=== PATIENT | male | born 1980 | race Caucasian/White ===

== ENCOUNTER 2017-06-11 19:20 | Emergency (ER) | payer OTHER ==
[~2017-06-11] VITALS: Ht 180.3 cm; Wt 83.9 kg
--- NOTE | 2017-06-11 20:24 | NUR ---
PT IN BED. PT A&OX4. PT IS COMPLAINING OF A BURNING SENSATION IN MOUTH. VS WITHIN NORMAL LIMITS. BREATH SOUNDS REGULAR AND UNLABORED. NO SIGNS OF DISTRESS NOTICED AT THIS TIME.
--- NOTE | 2017-06-11 20:50 | NUR ---
Patient discharged to home in stable conditon. Written and verbal after care instructions given. Patient verbalizes understanding of instructions.
[2017-06-12 02:38] VITALS: BP 132/84
== END 2017-06-11 20:50 | disposition home or self-care (01) ==
LOC: ER 19:20
DX: B86 Scabies (principal); Z59.0 Homelessness
CPT/HCPCS: 99283; A4663

== ENCOUNTER 2017-06-13 21:26 | Emergency (ER) | payer OTHER ==
[~2017-06-13] VITALS: Ht 172.7 cm; Wt 72.6 kg
--- NOTE | 2017-06-13 23:00 | NUR ---
Patient given written and verbal discharge instructions. Patient verbalizes understanding of instructions. Patient is ambulatory with steady gait. Refuses offer of [facility] placement. Patient given list of available shelters in surrounding area.
--- NOTE | 2017-06-13 23:00 | NUR ---
Rohan thomas in ED - 06/13/17 at [id number] by [id number] Patient discharged to home in stable conditon. Written and verbal after care instructions given. Patient verbalizes understanding of instructions.
[2017-06-13 23:41] VITALS: BP 130/68
== END 2017-06-13 23:42 | disposition home or self-care (01) ==
LOC: ER 21:27
DX: Z00.00 Encounter for general adult medical examination without abnormal findings (principal); Z59.0 Homelessness
CPT/HCPCS: A4663

== ENCOUNTER 2017-07-10 01:26 | Emergency (ER) | payer OTHER ==
[~2017-07-10] VITALS: Ht 180.3 cm; Wt 81.6 kg
--- NOTE | 2017-07-10 01:30 | NUR ---
DR LITZY COLLINS MD AT BEDSIDE FOR MSE.
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
[2017-07-10] MEDS ORDERED: KETOROLAC TROMETHAMINE 30 MG INJ IM ONE (01:45)
--- NOTE | 2017-07-10 02:00 | NUR ---
Patient discharged to home in stable conditon. Written and verbal after care instructions given. Patient verbalizes understanding of instructions. Pt ambulated from ER w/ stable gait. Verbalizes he will continue to ice his knee. No distress noted. Pt took all personal belongings.
[2017-07-10 02:11] VITALS: BP 114/74
== END 2017-07-10 02:12 | disposition home or self-care (01) ==
LOC: ER 01:27
DX: L03.211 Cellulitis of face (principal); M25.561 Pain in right knee; Z59.0 Homelessness
CPT/HCPCS: A4663; J1885

== ENCOUNTER 2018-12-22 02:15 | Emergency (ER) | payer OTHER ==
[~2018-12-22] VITALS: Ht 172.7 cm; Wt 90.7 kg
[2018-12-22] MEDS ORDERED: diphenhydrAMINE 25 MG CAP PO ONE ×2 (02:30→02:34)
--- NOTE | 2018-12-22 03:11 | NUR ---
Patient given written and verbal discharge instructions. Patient verbalizes understanding of instructions. Patient is ambulatory with steady gait. Refuses offer of assisted placement. Patient given list of available shelters in surrounding area. Patient provided with meals/clothing. Patient ambulated out of ER with stable gait.
[2018-12-22 03:13] VITALS: BP 138/81
== END 2018-12-22 03:15 | disposition home or self-care (01) ==
LOC: ER 02:17
DX: L29.9 Pruritus, unspecified (principal); E78.00 Pure hypercholesterolemia, unspecified; Z59.0 Homelessness
CPT/HCPCS: 99283; Q0163; A4663

== ENCOUNTER 2020-05-15 01:22 | Emergency (ER) | payer OTHER ==
[~2020-05-15] VITALS: Ht 180.3 cm; Wt 81.6 kg
--- NOTE | 2020-05-15 01:45 | NUR ---
Dr. Shonda Hooper at bedside for MSE.
[2020-05-15] MEDS ORDERED: IBUPROFEN 600 MG TABLET ONE (01:59)
[2020-05-15] MEDS ORDERED: IBUPROFEN 600 MG TABLET PO ONE (02:00)
--- NOTE | 2020-05-15 02:05 | NUR ---
Patient given written and verbal discharge instructions. Patient verbalizes understanding of instructions. Patient is ambulatory with steady gait. Refuses offer of [facility] placement. Patient given list of available shelters in surrounding area. Patient provided food per patient request and 2 long sleeve shirts, VSS, no acute signs of distress, all belongings taken.
[2020-05-15 02:07] VITALS: BP 152/87
== END 2020-05-15 02:08 | disposition home or self-care (01) ==
LOC: ER 01:26
DX: S41.111D Laceration without foreign body of right upper arm, subsequent encounter (principal); W45.8XXD Other foreign body or object entering through skin, subsequent encounter; Z59.0 Homelessness; R03.0 Elevated blood-pressure reading, without diagnosis of hypertension; E78.00 Pure hypercholesterolemia, unspecified
CPT/HCPCS: A4663

== ENCOUNTER 2021-02-18 18:32 | Emergency (ER) | payer OTHER ==
[~2021-02-18] VITALS: Ht 170.2 cm; Wt 68.0 kg
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
--- NOTE | 2021-02-18 19:10 | NUR ---
[employer] UNIT 10X12 ( SERIAL # [id number] AND [id number]) AT BEDSIDE.
--- NOTE | 2021-02-18 19:20 | NUR ---
Patient discharged to [facility] in stable condition. Written and verbal after care instructions given to patient and [employer], verbalizes understanding of instructions. Stressed follow up or return to ER for worsening s/s. Denies any pain/discomfort.
[2021-02-18 19:49] VITALS: BP 126/82
== END 2021-02-18 19:25 ==
LOC: ER 18:34
DX: Z02.89 Encounter for other administrative examinations (principal); Z59.02 Unsheltered homelessness; E78.00 Pure hypercholesterolemia, unspecified; Z86.19 Personal history of other infectious and parasitic diseases
CPT/HCPCS: 93005; A4663

== ENCOUNTER 2022-08-31 00:53 | Emergency (ER) | payer MEDICAID, OTHER ==
[~2022-08-31] VITALS: Ht 180.3 cm; Wt 84.8 kg
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
--- NOTE | 2022-08-31 01:34 | NUR ---
AT BEDSIDE FOR EVAL.
--- NOTE | 2022-08-31 02:10 | NUR ---
PT A,A AND O X 3 WITH NAD OBSERVED.Patient discharged to home in stable condition. Written and verbal after care instructions given. Patient verbalizes understanding of instructions. Stressed follow up or return to ER for worsening s/s. PT AMB OUT WITH STEADY GAIT.
[2022-08-31 02:12] VITALS: BP 111/73
== END 2022-08-31 02:10 | disposition home or self-care (01) ==
LOC: ER 01:02
DX: S01.112D Laceration without foreign body of left eyelid and periocular area, subsequent encounter (principal); E78.00 Pure hypercholesterolemia, unspecified; W18.39XD Other fall on same level, subsequent encounter
CPT/HCPCS: A4663